=== PATIENT | female | born 1990 | race Two or more races ===

== ENCOUNTER 2018-08-23 18:01 | Emergency (ER) | payer OTHER ==
[2018-08-23 18:22] LABS: PLATELET COUNT 237 10^3/uL (150-400)
[2018-08-23] MEDS ORDERED: NS 1,000 ML IV ONE (19:12)
--- NOTE | 2018-08-23 19:52 | CPEKG ---
Test Reason : OPEN Blood Pressure : / mmHG Vent. Rate : 071 BPM Atrial Rate : 070 BPM P-R Int : 144 ms QRS Dur : 078 ms QT Int : 388 ms P-R-T Axes : 060 068 062 degrees QTc Int : 422 ms Sinus rhythm Confirmed by Rosa Landrum ([id number]) on 08/23/2018 7:52:12 PM Referred By: Rosa Landrum Confirmed By:Rosa Landrum
[2018-08-23 19:53] VITALS: BP 109/62
--- NOTE | 2018-08-23 20:20 | EDPHY ---
H & P Stated Complaint: syncope Time Seen by Provider: 08/23/18 18:05 HPI/ROS: Chief complaint: Syncope History of present illness: This is a 27-year-old female brought to the emergency department by EMS for evaluation of a syncopal episode. Patient was apparently eating dinner when she passed out. This was witnessed. She did not fall to the ground. No seizure activity or postictal state reported. On my evaluation she states she generally feels unwell. She denies remembering much about the event other than getting lightheaded prior to it. She denies specific symptoms including no headaches, no chest pain, no shortness of breath , no cough, no abdominal pain, no nausea, vomiting, diarrhea. She has passed out previously. Review of systems: A 10 point review of systems was obtained and other than described above was negative - Personal History LMP (Females 10-55): IUD In Place Current Tetanus/Diphtheria Vaccine: Yes Current Tetanus Diphtheria and Acellular Pertussis (TDAP): Yes - Medical/Surgical History Hx Asthma: No Hx Chronic Respiratory Disease: No Hx Diabetes: No Hx Cardiac Disease: No Hx Renal Disease: No Hx Cirrhosis: No Hx Alcoholism: No Hx HIV/AIDS: No Hx Splenectomy or Spleen Trauma: No Other PMH: depression and anorexia - Social History Smoking Status: Never smoked - Physical Exam Exam: General Appearance: Alert, no distress. Eyes: Pupils equal and round no pallor or injection. ENT, Mouth: Mucous membranes moist. Respiratory: There are no retractions, lungs are clear to auscultation. Cardiovascular: Regular rate and rhythm. Gastrointestinal: Abdomen is soft and non tender, no masses, bowel sounds normal. Neurological: Alert and oriented x4. Cranial nerves 2-12 grossly intact. Strength and sensation intact and symmetrical. Skin: Warm and dry, no rashes. Musculoskeletal: Neck is supple non tender. Extremities are symmetrical, full range of motion. Psychiatric: Patient is oriented X 3, there is no agitation. Constitutional: Initial Vital Signs Heart Rate 69 08/23/18 18:10 Respiratory Rate 18 08/23/18 18:10 Blood Pressure 102/65 08/23/18 18:10 O2 Sat (%) 97 08/23/18 18:10 O2 Delivery Mode Room Air Allergies/Adverse Reactions: No Known Allergies Allergy (Unverified 08/23/18 18:11) Home Medications: Medication Instructions Recorded Adderall 10 MG (*) 08/23/18 Claritin 08/23/18 FLUoxetine [Prozac 10 MG (*)] 08/23/18 Wellbutrin 100mg (*) 08/23/18 Medical Decision Making ED Course/Re-evaluation: Patient is discussed with my secondary supervising physician Dr. Rosa Landrum. Patient is brought to the emergency department by EMS after having a syncopal event. On my evaluation she is nontoxic. Vital signs are stable. She has a nonfocal neurologic exam. Blood studies and EKG are unremarkable. She is given 2 L of normal saline IV. Orthostatics vital signs are negative. She is ambulating on her own without difficulty and is asymptomatic. She is tolerating oral challenges. I do believe she is appropriate for outpatient management. She will be discharged home. Home care is discussed. She is asked to follow up with her primary care doctor for recheck. Return precautions are given. The patient voiced understanding and agreement with plan. Differential Diagnosis: Included but not limited to syncope secondary to vasovagal event, volume depletion, electrolyte disturbance, cardiac disturbance, seizure activity unlikely - Data Points Laboratory Results: Laboratory Results 08/23/18 18:05 08/23/18 18:05 08/23/18 08/23/18 08/23/18 20:03 18:05 18:05 WBC RBC Hgb Hct MCV MCH MCHC RDW Plt Count MPV Neut % (Auto) Lymph % (Auto) [place] % (Auto) Eos % (Auto) Baso % (Auto) Nucleat RBC Rel Count Absolute Neuts (auto) Absolute Lymphs (auto) Absolute Monos (auto) Absolute Eos (auto) Absolute Basos (auto) Absolute Nucleated RBC Immature Gran % Immature Gran # Sodium 136 mEq/L mEq/L (135-145) Potassium 4.1 mEq/L mEq/L (3.5-5.2) Chloride 98 mEq/L mEq/L (97-110) Carbon Dioxide 26 mEq/l mEq/l (22-31) Anion Gap 12 mEq/L mEq/L (6-14) BUN 14 mg/dL mg/dL (7-23) Creatinine 0.9 mg/dL mg/dL (0.6-1.0) Estimated GFR > 60 Glucose 176 mg/dL H mg/dL (70-100) Calcium 9.9 mg/dL mg/dL (8.5-10.4) Beta HCG, Qual NEGATIVE Urine Color PALE YELLOW Urine Appearance CLEAR Urine pH 6.0 (5.0-7.5) Ur Specific [place] 1.006 (1.002-1.030) Urine Protein NEGATIVE (NEGATIVE) Urine Ketones NEGATIVE (NEGATIVE) Urine Blood NEGATIVE (NEGATIVE) Urine Nitrate NEGATIVE (NEGATIVE) Urine Bilirubin NEGATIVE (NEGATIVE) Urine Urobilinogen NEGATIVE EU EU (0.2-1.0) Ur Leukocyte Esterase NEGATIVE (NEGATIVE) Urine RBC 1-3 /hpf /hpf (0-3) Urine WBC 1-3 /hpf /hpf (0-3) Ur Epithelial Cells TRACE /lpf /lpf (NONE-1+) Urine Glucose NEGATIVE (NEGATIVE) 08/23/18 18:05 WBC 18.03 10^3/uL H 10^3/uL (3.80-9.50) RBC 4.41 10^6/uL 10^6/uL (4.18-5.33) Hgb 13.9 g/dL g/dL (12.6-16.3) Hct 42.5 % % (38.0-47.0) MCV 96.4 fL fL (81.5-99.8) MCH 31.5 pg pg (27.9-34.1) MCHC 32.7 g/dL g/dL (32.4-36.7) RDW 12.6 % % (11.5-15.2) Plt Count 237 10^3/uL 10^3/uL (150-400) MPV 10.9 fL fL (8.7-11.7) Neut % (Auto) 78.2 % H % (39.3-74.2) Lymph % (Auto) 11.0 % L % (15.0-45.0) [place]uming % (Auto) 6.2 % % (4.5-13.0) Eos % (Auto) 3.8 % % (0.6-7.6) Baso % (Auto) 0.4 % % (0.3-1.7) Nucleat RBC Rel Count 0.0 % % (0.0-0.2) Absolute Neuts (auto) 14.07 10^3/uL H 10^3/uL (1.70-6.50) Absolute Lymphs (auto) 1.99 10^3/uL 10^3/uL (1.00-3.00) Absolute Monos (auto) 1.12 10^3/uL H 10^3/uL (0.30-0.80) Absolute Eos (auto) 0.69 10^3/uL H 10^3/uL (0.03-0.40) Absolute Basos (auto) 0.08 10^3/uL 10^3/uL (0.02-0.10) Absolute Nucleated RBC 0.00 10^3/uL 10^3/uL (0-0.01) Immature Gran % 0.4 % % (0.0-1.1) Immature Gran # 0.08 10^3/uL 10^3/uL (0.00-0.10) Sodium Potassium Chloride Carbon Dioxide Anion Gap BUN Creatinine Estimated GFR Glucose Calcium Beta HCG, Qual Urine Color Urine Appearance Urine pH Ur Specific [place] Urine Protein Urine Ketones Urine Blood Urine Nitrate Urine Bilirubin Urine Urobilinogen Ur Leukocyte Esterase Urine RBC Urine WBC Ur Epithelial Cells Urine Glucose Medications Given: Discontinued Medications Sodium Chloride (Ns) 1,000 mls @ 0 mls/hr IV ONCE ONE PRN Reason: Wide Open Stop: 08/23/18 19:13 Last Admin: 08/23/18 19:13 Dose: 1,000 mls Departure - Departure Disposition: Home, Routine, Self-Care Clinical Impression: Syncope Qualifiers: Syncope type: unspecified Qualified Code(s): R55 - Syncope and collapse Condition: Good Instructions: Syncope (ED) Additional Instructions: Follow-up with a primary care doctor this week for recheck Drink plenty of fluids to stay hydrated Symptoms return or new symptoms develop return to the emergency room for recheck Referrals: NONE *PRIMARY CARE P,. [Primary Care Provider] - As per Instructions [facility],. [Clinic] - As per Instructions Misty Hernandez MD [Medical Doctor] - As per Instructions
== END 2018-08-23 20:45 | disposition home or self-care (01) ==
LOC: EDUNIT#
DX: R55 Syncope and collapse (principal)